=== PATIENT | male | born 1980 | race Caucasian/White ===

== ENCOUNTER 2022-11-25 08:46 | Emergency (ER) | payer MEDICAID ==
[~2022-11-25] VITALS: Ht 175.3 cm; Wt 75.0 kg
[2022-11-25 09:43] LABS: MEAN CORPUSCULAR HGB CONC 34.2 g/dL (33.0-36.5); MEAN PLATELET VOLUME 6.7 FL (7.4-10.4)
[2022-11-25 09:45] LABS: BASOPHILS # (AUTO) 0.1 X10'3 (0-0.2); BASOPHILS % (AUTO) 1.1 % (0-1); EOSINOPHILS # (AUTO) 0.2 X10'3 (0-0.9); EOSINOPHILS % (AUTO) 2.3 % (0-6); HEMATOCRIT 43.1 % (42.0-52.0); HEMOGLOBIN 14.7 g/dl (14.0-17.9); LYMPHOCYTES # (AUTO) 2.6 X10'3 (1.1-4.8); LYMPHOCYTES % (AUTO) 26.7 % (21-51); MEAN CORPUSCULAR HEMOGLOBIN 29.9 PG (27.0-31.0); MEAN CORPUSCULAR VOLUME 87.5 FL (78-98); MONOCYTES # (AUTO) 0.8 X10'3 (0-0.9); MONOCYTES % (AUTO) 7.9 % (2-12); NEUTROPHILS # (AUTO) 6.1 X10'3 (1.8-7.7); PLATELET COUNT 312 X10'3 (140-440); RED BLOOD COUNT 4.92 X10'6 (4.70-6.10); RED CELL DISTRIBUTION WIDTH 14.3 % (11.5-14.5); WHITE BLOOD COUNT 9.9 X10'3 (4.5-11.0)
[2022-11-25 09:52] LABS: ALANINE AMINOTRANSFERASE 18 U/L (12-78); ALBUMIN 3.8 G/DL (3.4-5.0); ALKALINE PHOSPHATASE 88 IU/L (46-116); ANION GAP 8 (8-16); ASPARTATE AMINO TRANSFERASE 15 U/L (10-37); BILIRUBIN,TOTAL 0.3 MG/DL (0.1-1.0); BLOOD UREA NITROGEN 23 MG/DL (7-18); BUN/CREATININE RATIO 23.2 (10.0-20.0); CALCIUM 9.1 MG/DL (8.5-10.1); CHLORIDE 102 MMOL/L (99-107); CREATININE 0.99 MG/DL (0.60-1.10); GLUCOSE 100 MG/DL (70-104); POTASSIUM 3.8 MMOL/L (3.5-5.1); SODIUM 141 MMOL/L (135-145); TOTAL CARBON DIOXIDE 30.9 MMOL/L (24-32); TOTAL PROTEIN 7.6 G/DL (6.4-8.2); eGFR 82 ML/MIN
[2022-11-25 10:11] LABS: PLATELET ESTIMATE NORMAL; TOTAL CELLS COUNTED 100
[2022-11-25 10:14] LABS: ETHANOL < 10 MG/DL (<10)
--- NOTE | 2022-11-25 15:53 | NUR ---
Received Pt from ER to [facility]. Pt placed in room 23. Pt did come with belongings except the shirt and shorts he is wearing.
[2022-11-25 16:06] LABS: CLARITY,URINE CLEAR (Clear); COLOR,URINE YELLOW (Yellow); GLUCOSE, URINE NEGATIVE (Neg); KETONES,URINE NEGATIVE (Neg); LEUKOCYTE ESTERASE ,URINE NEGATIVE (Neg); NITRITES, URINE NEGATIVE (Neg); OCCULT BLOOD,URINE TRACE-INTACT (Neg); PROTEIN,URINE NEGATIVE (Neg); UA COLLECTION TYPE CLN CATCH MIDSTREAM; UROBILINOGEN,URINE 0.2 E.U/dL (0.2-1.0)
[2022-11-25 16:10] LABS: BACTERIA,URINE FEW /HPF (Neg); SQUAMOUS EPITHELIAL CELL,UR FEW /LPF (FEW); WBC,URINE 0-4 /HPF (0-4)
[2022-11-25 16:19] LABS: URINE AMPHETAMINE SCREEN NEGATIVE (Neg); URINE BARBITUATE SCREEN NEGATIVE (Neg); URINE BENZODIAZEPINES SCREEN NEGATIVE (Neg); URINE CANNABINOID SCREEN NEGATIVE (Neg); URINE COCAINE SCREEN NEGATIVE (Neg); URINE METHADONE SCREEN NEGATIVE (Neg); URINE OPIATE SCREEN NEGATIVE (Neg); URINE PHENCYCLIDINE SCREEN NEGATIVE (Neg)
--- NOTE | 2022-11-25 16:29 | NUR ---
Pt appears anxious and asks for foor frequently. Pt reports being from [place] and has been traveling for "a thousand years". Pt reports being in different states, [place]. being the latest and has been in [place] about a week and has stayed at the [facility]. Pt reports +AH's and paranoia about many things. "People can read my thoughts". Pt repoprts Hx of physical illnesses that he has taken medication for. Pt is very much wanting to get into a in-pt MH facility. Pt is anxious and borderline entitled and demanding, but cooperative. Dr Robin saw pt initially.
[2022-11-25] MEDS ORDERED: RISP1TAB98 PO (16:46)
[2022-11-25] MEDS ORDERED: LORA-269 PO (16:46)
[2022-11-25] MEDS ORDERED: OLAN10TA3 PO (16:46)
[2022-11-25] MEDS ORDERED: ESCI10TA PO (16:46)
[2022-11-25] MEDS ORDERED: HYDR-3686 PO (16:46)
[2022-11-25] MEDS ORDERED: hydrOXYzine 25 MG tablet PO PRN (17:00)
[2022-11-25] MEDS: ESCITALOPRAM OXALATE 5 MG TABLET PO SCH (17:49)
[2022-11-25] MEDS: LORazepam 1 MG tablet PO PRN (17:49)
--- NOTE | 2022-11-25 18:18 | NUR ---
Med rec. completed and signrd by Dr Robin and faxed to pharm. Pt recieved Lexapro and ativan. He ate dinner and continues to request food. [facility] clinician reported that Pt was released from [facility] [place] yesterday due to not answering Q's.
--- NOTE | 2022-11-25 18:25 | NUR ---
Assumed care at this time. Received report from Se RAMIREZ. Patient asked multiple questions throughout nurse report. Patient reports, "I like food. Can I have that Atarax?" Got up to BR to void. Will continue to monitor.
--- NOTE | 2022-11-25 19:31 | NUR ---
Patient has continuously made requests every few minutes for snacks. Administered Atarax recently for anxiety. Patient reports SI. States has +AH that tell him to self-harm. Patient restless and talking continuously.
[2022-11-25] MEDS ORDERED: olanzapine 10mg tablet PO SCH (21:00)
[2022-11-25] MEDS ORDERED: risperiDONE 0.5mg tablet PO SCH (21:00)
--- NOTE | 2022-11-25 21:21 | NUR ---
Patient has been sleeping since Atarax administration.
--- NOTE | 2022-11-25 23:27 | NUR ---
Patient sleeping, Rise/fall of chest noted. Respirations even/nonlabored. Will continue to monitor.
--- NOTE | 2022-11-26 01:30 | NUR ---
Patient sleeping, snoring noted. Will continue to monitor.
--- NOTE | 2022-11-26 03:00 | NUR ---
Patient continues to sleep. Will continue to monitor.
--- NOTE | 2022-11-26 05:30 | NUR ---
Sleeping comfortably at this time. Will continue to monitor.
--- NOTE | 2022-11-26 06:30 | NUR ---
Assumed care of patient, pt. is sleeping at this time, rise and fall of chest noted.
--- NOTE | 2022-11-26 08:24 | NUR ---
Pt. continues to sleep at this time, rr are even and unlabored.
[2022-11-26] MEDS: ESCITALOPRAM OXALATE 5 MG TABLET PO SCH (08:29)
--- NOTE | 2022-11-26 08:55 | NUR ---
Pt. awoke and ate breakfast and 1:1 was completed at bedside. Pt. continues to endorse S/I with a plan to jump in front of a train. This was endorsed to [facility] who continues to plan to discharge patient with a one-way ticket once he is able to contact pt's family. Per [facility], pt. is traveler who habitually uses the mental health system going from facility to facility (per notes pt. was recently released from [facility]). Pt. denies any current A/V/YOUSIF, however does endorse some paranoid thoughts that random others want to hurt him. Upon further questioning by this underwriter, pt. does not elaborate on this and states in a dismissive manner, "I don't know." He then returns back to sleep.
--- NOTE | 2022-11-26 10:40 | NUR ---
Pt. continues to sleep at this time, laying on his right side.
[2022-11-26] MEDS: LORazepam 1 MG tablet PO PRN (11:21)
--- NOTE | 2022-11-26 11:23 | NUR ---
Pt. reported anxiety r/t upcoming discharge. PRN Ativan was administered and will continue to monitor.
--- NOTE | 2022-11-26 11:48 | NUR ---
Pt. reports he currently has belongings at the [facility] that he would like to get, this was endorsed to [facility] who reports it is the pt's responsibility to get these items. We can provide him with transportation.
--- NOTE | 2022-11-26 12:17 | NUR ---
Pt. is sitting up in bed eating lunch at this time. He continues to present as restless and changes his mind multiple times regarding where he would like to be provided transportation to. This was endorsed to [facility] who is currently working on getting in contact with pt's [id number].
--- NOTE | 2022-11-26 13:47 | NUR ---
Pt. on the phone at this time attempting to call his [id number].
--- NOTE | 2022-11-26 16:37 | NUR ---
Pt. was discharged off the unit accompanied by security to a Taxi which will be taking him to the [facility]. At [facility] pt. will continue to attempt to get in contact with his family, and is hopeful that they will provide him with funds for bus ticket. Pt's belongings were returned to him, and this procedure writer reviewed pt's discharge instructions and he reported understanding. Pt. was provided with mental health resources.
[2022-11-26 17:23] VITALS: BP 109/73; PULSE 55; RESP 16; TEMP 97.7; O2SAT 97
== END 2022-11-26 17:25 | disposition home or self-care (01) ==
LOC: ER 08:47
DX: R45.851 Suicidal ideations (principal); Z20.822 Contact with and (suspected) exposure to COVID-19; F17.200 Nicotine dependence, unspecified, uncomplicated; Z88.0 Allergy status to penicillin; Z79.899 Other long term (current) drug therapy; Z98.890 Other specified postprocedural states
CPT/HCPCS: 36415; 80053; 80305; 80320; 81001; 84443; 85007; 85025; 87811; 99285; Q0177